=== PATIENT | male | born 2000 | race Hispanic/Latino ===

== ENCOUNTER 2022-12-04 13:06 | Emergency (ER) | payer SELFPAY ==
[2022-12-04 13:27] VITALS: BP 128/79; PULSE 51; RESP 12; TEMP 37.1; O2SAT 100
--- NOTE | 2022-12-04 14:31 | ED.SKABFB ---
HPI - Skin/Abscess/Foreign Bdy General Chief complaint: Skin/Abscess/Foreign Body Stated complaint: Rash Time Seen by Provider: 12/04/22 14:32 Source: patient, family, RN notes reviewed and old records reviewed Mode of arrival: ambulatory Limitations: language barrier and other (father translater) History of Present Illness HPI narrative: 22-year-old male accompanied by father presents to [facility] with complaints of poison mckayla rash for the past 8 days which has spread. Patient does not speak [place] father interpreting for patient. Patient has been working at home in the yard and has been working with [employer] . Patient initially noted rash to his left forearm but now rash has spread to his neck, denies any difficulty with his breathing or with swallowing. Rash is maculopapular with some vesicles noted to neck rash is itchy. MD complaint: rash Onset (ago): day(s) (8) Treatments prior to arrival: none Related Data Allergies Allergy/AdvReac Type Severity Reaction Status Date / Time No Known Allergies Allergy Verified 12/04/22 13:32 Review of Systems Review of Systems: CONSTITUTIONAL: Denies fever, chills, or sweats. CARDIOVASCULAR: Denies chest pain, palpitations, or edema. RESPIRATORY: Denies cough or dyspnea. SKIN: Reports itchy rash to left forearm which is bright red and itchy, no drainage, rash to neck raised and pinkish red with vesicles. MUSCULOSKELETAL: Denies joint pain or myalgia. NEUROLOGIC: Denies headache, numbness, or left forearm w. All systems reviewed & are unremarkable except as noted in HPI and below PMFSH Social History Social History (Updated 12/06/22 @ 22:21 by Stephanie Handy NP) Smoking status: Never smoker Alcohol intake: current Alcohol use details: social Substance use type: does not use Living arrangements: with family Gender identity (if verbalized by the patient): Male Comments At time of signature, agree with nursing past medical, surgical, social and family history. There is no relevant family history pertinent to the presenting complaint Exam Narrative: GENERAL: Well-appearing, well-nourished, and in no acute distress. HEAD: Normocephalic, atraumatic. EYES: PERRLA, conjunctivae clear, and EOMI. ENT: Mucous membranes moist. Oropharynx without edema, erythema or lesions. NECK: Supple. No lymphadenopathy CHEST: Clear to auscultation. No respiratory distress.SAO2 100% on room air HEART: Regular rate and rhythm. SKIN: Warm, dry.? Patches of erythema and edema left forearm with raised rash on neck with some vesicles.rash is itchy NEURO:? Alert and oriented x3. PSYCH: Normal mood and affect Course Course Emergency Course: Patient is aware of diagnosis, understands and agrees to treatment plan.? Anticipatory guidance given.? Patient agrees to follow-up as directed and is aware of reasons to seek care at the emergency department. Portions of this record may have been created with voice recognition software Level of Care: Express Care Visit Vital Signs Vital signs: Vital Signs Temperature 37.1 C 12/04/22 13:27 Pulse Rate 51 L 12/04/22 13:27 Respiratory Rate 12 12/04/22 13:27 Blood Pressure 128/79 12/04/22 13:27 Pulse Oximetry 100 12/04/22 13:27 Oxygen Delivery Room Air 12/04/22 13:27 Temperature 37.1 C 12/04/22 13:27 Pulse Rate 51 L 12/04/22 13:27 Respiratory Rate 12 12/04/22 13:27 Blood Pressure 128/79 12/04/22 13:27 Pulse Oximetry 100 12/04/22 13:27 Oxygen Delivery Room Air 12/04/22 13:27 Reviewed MDM - Skin/Abscess/Foreign Bdy MDM Narrative Medical decision making narrative: Does not appear at this time to be erythema multiforme, bullous, SJS, TEN; no evidence at this time to suggest RMSF, endocarditis or Lyme disease; patient looks well, nontoxic and is tolerating oral intake; no neurologic signs or symptoms; no headache, photophobia or neck pain; afebrile; appropriate for initial outpatient
[2022-12-04] MEDS: methylPREDNISolone ACETATE 80 MG/ML VIAL IM (14:42)
== END 2022-12-04 15:00 | disposition home or self-care (01) ==
PROVIDERS: Emergency Provider Registered Nurse
DX: L25.5 Unspecified contact dermatitis due to plants, except food (principal)
CPT/HCPCS: 96372; 99203; G0463; J1040